=== PATIENT | male | born 1960 | race Caucasian/White ===

== ENCOUNTER 2021-09-20 03:25 | Emergency (ER) | payer MEDICAID ==
[~2021-09-20] VITALS: Ht 170.2 cm; Wt 63.5 kg
--- NOTE | 2021-09-20 03:25 | NUR ---
PT BROUGHT TO BED 8 VIA MARTA GONZALES
[2021-09-20 03:28] VITALS: BP 156/94
--- NOTE | 2021-09-20 03:47 | NUR ---
SPOKE TO POISON CONTROL TRIAL [facility]ALE[facility] MEGAN. HE STATED THAT RECCOMENDATION IS TO ENCOURAGE PO FLUIDS. PATIENT MIGHT FEEL THROAT IRRITATION. PATIENT STATED THAT LONG PATIENT IS NOT HAVING DIFFICULTY BREATHING THEY CAN BE DISCHARGED. IF PATIENT DOES HAVE THAT LATER THEY CAN RETURN FOR FURTHER EVALUATION AND CXR.
--- NOTE | 2021-09-20 03:47 | NUR ---
POISON CONTROL STATED THEY WOULD FILL OUT THE PESTICIDE REPORT FOR MD SEWELL.
--- NOTE | 2021-09-20 03:58 | NUR ---
Called poison control : Observation - breathing, SOB, difficulty breathing symptoms.
--- NOTE | 2021-09-20 04:00 | NUR ---
61/M BIBA C/C SWALLOWING AND INHALING 2 SPRAYS OF RAID SPRAY. PER PATIENT HE WAS SPRAYING RAID , WHEN THE AC TURNED ON AND HIT HIM IN THE FACE. PATIENT REPORTED SOME DIZZINESS AT THE TIME OF INCIDENT. PATIENT DENIES N/V/SOB/CP AT THIS TIME. PATIENT PLACED ON MONITOR AND PLACED IN BED. BED LOW AND LOCKED. NADIA SIDE RAILS FOR SAFETY. ALL NEED MET. ALLERGIES PCN
--- NOTE | 2021-09-20 04:25 | NUR ---
Dr. Monreal examining patient.
[2021-09-20 05:25] VITALS: BP 128/89
--- NOTE | 2021-09-20 05:25 | NUR ---
Patient discharged with v/s stable. Written and verbal after care instructions given and explained. Patient verbalized understanding. Ambulatory with steady gait. All questions addressed prior to discharge. Advised to follow up with PMD.
--- NOTE | 2021-09-20 05:25 | NUR ---
Chart checked and completed.
== END 2021-09-20 05:25 | disposition home or self-care (01) ==
LOC: MED 03:25
DX: T65.891A Toxic effect of other specified substances, accidental (unintentional), initial encounter (principal); I10 Essential (primary) hypertension; Z88.0 Allergy status to penicillin; Y92.89 Other specified places as the place of occurrence of the external cause
CPT/HCPCS: 99283